=== PATIENT | female | born 2000 | race Caucasian/White ===

== ENCOUNTER 2021-04-08 00:15 | Emergency (ER) | payer BC, OTHER ==
[2021-04-08 01:17] LABS: HEMOGLOBIN 14.3 gm/dl (12.3-15.3); RED BLOOD COUNT 4.7 M/UL (4.00-5.10); WHITE BLOOD COUNT 5.7 K/UL (4.5-11.0)
[2021-04-08 01:52] LABS: BUN/CREATININE RATIO 10 (0-10)
== END 2021-04-08 02:47 | disposition home or self-care (01) ==
LOC: ER1 00:15
PROVIDERS: Emergency Medicine
DX: U07.1 COVID-19 (principal); R00.0 Tachycardia, unspecified
CPT/HCPCS: 71045; 80048; 81001; 82550; 82553; 83605; 83735; 83874; 84439; 84443; 84484; 84703; 85025; 85379; 93005; 99285; U0002